=== PATIENT | male | born 1995 | race Two or more races ===

== ENCOUNTER 2020-01-31 20:43 | Emergency (ER) | payer MEDICAID ==
[~2020-01-31] VITALS: Ht 170.2 cm; Wt 59.0 kg
--- NOTE | 2020-01-31 21:14 | NUR ---
CALLED LAB FOR BERNA
[2020-01-31] MEDS ORDERED: LORAZEPAM 1 MG TABLET ONE (21:15)
[2020-01-31] MEDS ORDERED: LORAZEPAM 1 MG TABLET PO ONE (21:30)
--- NOTE | 2020-01-31 21:30 | NUR ---
BERNA SENT TO LAB
--- NOTE | 2020-01-31 21:33 | NUR ---
PT STATED HE FEELS BETTER. DENIES PAIN. VSS.
--- NOTE | 2020-01-31 21:59 | NUR ---
Patient discharged to home in stable condition. Written and verbal after care instructions given. Patient verbalizes understanding of instruction and RX.
[2020-01-31 22:00] VITALS: BP 122/69
== END 2020-01-31 22:00 | disposition home or self-care (01) ==
LOC: ER 20:49
DX: Z03.818 Encounter for observation for suspected exposure to other biological agents ruled out (principal); F41.9 Anxiety disorder, unspecified
CPT/HCPCS: 71045; 93005; 99285; C9803; U0003